=== PATIENT | male | born 1950 | race Two or more races ===

== ENCOUNTER 2023-12-18 09:25 | Outpatient (REF) | payer MEDICARE, SELFPAY ==
--- NOTE | 2023-12-18 09:31 | EMG_ITS ---
Chief complaint: Bilateral hand numbness, 2nd-4th digits, right worse than left. At least 6 months to a year. History of gout, 15 years. Noted finger swelling, which he says has been on and off chronically. Reason for referral: Evaluate for Carpal Tunnel Syndrome Referred by: Dr. Haris Hannon Procedure done: Bilateral upper extremities NCS/EMG Precautions and/or limitations: None The limb temperature was monitored continuously and remained between 32-36 degrees C during the performance of the NCS. Nerve Conduction Studies Anti Sensory Summary Table ?Stim Site NR Onset (ms) Norm Onset (ms) Peak (ms) Norm Peak (ms) O-P Amp (?V) Norm O-P Amp Site1 Site2 Delta-0 (ms) Dist (cm) Carlton (m/s) Norm Carlton (m/s) Left Median Anti Sensory (2nd Digit) Wrist NR <3.6 >10 Wrist 2nd Digit 14.0 Right Median Anti Sensory (2nd Digit) Wrist NR <3.6 >10 Wrist 2nd Digit 14.0 Right Radial Anti Sensory (Thumb) Forearm ? 1.6 2.2 <3.1 20.2 Forearm Thumb 1.6 0.0 Left Ulnar Anti Sensory (5th Digit) Wrist ? 2.6 3.7 <3.7 27.6 >15.0 Wrist 5th Digit 2.6 14.0 54 Right Ulnar Anti Sensory (5th Digit) Wrist ? 2.7 3.3 <3.7 11.7 >15.0 Wrist 5th Digit 2.7 14.0 52 Motor Summary Table ?Stim Site NR Onset (ms) Norm Onset (ms) O-P Amp (mV) Norm O-P Amp iAmp (mV) Amp (1st) (%) Site1 Site2 Delta-0 (ms) Dist (cm) Carlton (m/s) Norm Carlton (m/s) Left Median Motor (Abd Poll Brev) Wrist ? 11.3 <3.9 5.0 >4.5 6.0 100.0 Elbow Wrist 4.3 20.0 47 >45 Elbow ? 15.6 5.1 5.9 102.0 Right Median Motor (Abd Poll Brev) Wrist ? 9.2 <3.9 2.7 >4.5 3.3 100.0 Elbow Wrist 4.6 19.0 41 >45 Elbow ? 13.8 2.5 2.9 92.6 Left Ulnar Motor (Abd Dig Minimi) Wrist ? 2.7 <3.0 6.5 >5 8.2 100.0 B Elbow Wrist 3.9 18.5 47 >45 B Elbow ? 6.6 6.2 8.0 95.4 A Elbow B Elbow 1.9 10.0 53 >45 A Elbow ? 8.5 5.6 7.4 86.2 Right Ulnar Motor (Abd Dig Minimi) Wrist ? 3.0 <3.0 6.3 >5 8.6 100.0 B Elbow Wrist 3.8 20.5 54 >45 B Elbow ? 6.8 6.0 8.5 95.2 A Elbow B Elbow 1.6 10.0 62 >45 A Elbow ? 8.4 6.1 8.6 96.8 EMG ?Side Muscle Nerve Root Ins Act Fibs Psw Amp Dur Poly Recrt Int Pat Comment Right 1stDorInt Ulnar C8-T1 Nml Nml Nml Nml Nml 0 Nml Complete Right FlexCarRad Median C6-7 Nml Nml Nml Nml Nml 0 Nml Complete Right Biceps Musculocut C5-6 Nml Nml Nml Nml Nml 0 Nml Complete Right Triceps Radial C6-7-8 Nml Nml Nml Nml Nml 0 Nml Complete Right Deltoid Axillary C5-6 Nml Nml Nml Nml Nml 0 Nml Complete Left 1stDorInt Ulnar C8-T1 Nml Nml Nml Nml Nml 0 Nml Complete Left FlexCarRad Median C6-7 Nml Nml Nml Nml Nml 0 Nml Complete Left Biceps Musculocut C5-6 Nml Nml Nml Nml Nml 0 Nml Complete Left Triceps Radial C6-7-8 Nml Nml Nml Nml Nml 0 Nml Complete Left Deltoid Axillary C5-6 Nml Nml Nml Nml Nml 0 Nml Complete FINDINGS: Right median motor nerve showed prolonged distal latency, small amplitude and slow conduction velocity. Left median motor nerve showed prolonged distal latency, normal amplitude and normal conduction velocity. Bilateral median sensory nerves showed absent response. All other nerves tested were within normal. Concentric needle EMG was performed in selected muscles of the bilateral upper extremities. Study did not reveal signs of electric abnormalities as shown in the table below. IMPRESSION: 1. This is an abnormal study. 2. There is electrodiagnostic evidence for bilateral moderate-severe median neuropathy at the wrist, consistent with carpal tunnel syndrome. 3. There is no electrodiagnostic evidence for ulnar neuropathy, brachial plexopathy, or cervical radiculopathy. CLINICAL COMMENT: Consider rheumatology referral. Finger swelling appears out of proportion to Carpal Tunnel Syndrome. Thank you for your kind referral. Yessica Briseno MD, ILIR Board Certified, [place] [employer] (ABPMR) Board Certified, [place] [employer] Electro[employer] (ABEM) CODIN 70861 x 2 MTDD
== END 2023-12-18 09:26 | disposition home or self-care (01) ==
LOC: HO.NEURO 09:25
PROVIDERS: Visit Provider Internal Medicine
DX: R20.0 Anesthesia of skin (principal)
CPT/HCPCS: 95886; 95911

== ENCOUNTER → 2023-12-18 09:31 | Outpatient (BNV) | payer MEDICARE, SELFPAY | PROVIDERS: Visit Provider Physical Medicine & Rehabilitation | DX: G56.03 Carpal tunnel syndrome, bilateral upper limbs (principal); G56.13 Other lesions of median nerve, bilateral upper limbs | CPT/HCPCS: 95886; 95911 ==